=== PATIENT | male | born 1980 | race Caucasian/White ===

== ENCOUNTER 2019-05-15 08:05 | Outpatient (CLI) | payer BC ==
--- NOTE | 2019-05-15 10:42 | ULT ---
EXAM: US Abdominal CLINICAL HISTORY: Arm pain. COMPARISON: None. FINDINGS: Pancreas: The head of the pancreas has a normal echotexture. The remainder the pancreas is obscured by bowel gas IVC: Visualized IVC has a normal caliber. Aorta: Visualized aorta has a normal caliber. Liver:Hepatic parenchyma has a normal echotexture. No hepatic masses or intrahepatic biliary dilatati on. The contour of the hepatic margins maintained. Right hepatic lobe measures 18.8 cm. Gallbladder: There is a small stone in the lumen of the gallbladder, possibly in the neck of the gall bladder. Gallbladder appears to be distended. Gallbladder wall is not thickened. No pericholecystic fluid. Nunn's sign:Negative CBD: Common bile duct diameter 0.7 cm Portal vein: Patent. Appropriate directional flow. Right kidney: Normal cortical echotexture. No hydronephrosis. Right kidney measuring 11.1 x 7.1 x 6. 9 cm in length. Left kidney: Normal cortical echotexture. No hydronephrosis . Left kidney measuring 6.6 x 11.1 x 5.1 cm in length Spleen: Normal echotexture, measuring 11 cm in maximum dimension IMPRESSION: 1. Sonographic evidence of gallstones in the neck of the gallbladder. Gallbladder wall is distended. Common bile duct is dilated. 2. If there is concern for choledocholithiasis, consider MRCP. 3. HIDA scan may also be beneficial to assess for gallbladder obstruction given gallbladder distentio n in the presence of gallstones the neck of the gallbladder.
== END 2019-05-15 08:06 | disposition home or self-care (01) ==
LOC: SCSULT 08:05
PROVIDERS: ATTEND Family Medicine Sports Medicine
DX: R10.11 Right upper quadrant pain (principal); K80.20 Calculus of gallbladder without cholecystitis without obstruction; K82.8 Other specified diseases of gallbladder; K83.8 Other specified diseases of biliary tract
CPT/HCPCS: 93975